=== PATIENT | female | born 1995 | race Caucasian/White ===

== ENCOUNTER → 2018-05-17 | Outpatient (REF) | payer BC, OTHER ==
[2018-05-18 14:20] LABS: PROLACTIN 10.6 NG/ML
[2018-05-18 14:20] LABS: TESTOSTERONE 55 NG/DL (14-76)
== END ==
LOC: M LAB REF 13:14
DX: L68.0 Hirsutism (principal); N91.0 Primary amenorrhea
CPT/HCPCS: 84146